=== PATIENT | female | born 2000 | race Caucasian/White ===

== ENCOUNTER 2019-04-23 10:17 | Emergency (ER) | payer OTHER ==
[2019-04-23 10:44] VITALS: BP 105/61
--- NOTE | 2019-04-23 10:52 | UC ---
Dental HPI - HPI Summary HPI Summary: right jaw pain x 4 days + injury 4 days ago , was hit to her right side for jaw during a rugby game pain is 6 out of 10 , worse with chewing, moving her jaw , talking, better with rest, Tylenol , + right ear pain no fever - History of Current Complaint Chief Complaint: UCGeneralIllness Stated Complaint: JAW PAIN/EAR PAIN Time Seen by Provider: 04/23/19 10:40 Hx Obtained From: Patient Hx Last Menstrual Period: 04/13/19 ?: No Onset/Duration: Gradual Onset, Lasting Days - 4, Still Present Severity: Moderate Pain Intensity: 6 Aggravating Factor(s): Chewing Alleviating Factor(s): Nothing - Allergies/Home Medications Allergies/Adverse Reactions: Allergies Allergy/AdvReac Type Severity Reaction Status Date / Time No Known Allergies Allergy Verified 04/23/19 10:39 Home Medications: Home Medications Dextroamphetamine/Amphetamine [Adderall Xr 20 mg Capsule] 20 mg PO DAILY [History Confirmed 04/23/19] Ibuprofen TAB* [Motrin TAB* 400 MG] 800 mg PO Q6H PRN 04/23/19 [History Confirmed 04/23/19] Naproxen [Naproxen 500 mg tab] 500 mg PO ONCE 04/23/19 [History Confirmed ] PMH/Surg Hx/FS Hx/Imm Hx Previously Healthy: Yes - Surgical History Surgical History: None - Family History Known Family History: Negative: Diabetes - Social History Alcohol Use: Occasionally Substance Use Type: None Smoking Status (MU): Never Smoked Tobacco Review of Systems All Other Systems Reviewed And Are Negative: Yes Constitutional: Positive: Negative Skin: Positive: Negative Eyes: Positive: Negative ENT: Positive: Ear Ache. Negative: Sore Throat, Nasal Discharge Respiratory: Positive: Negative Is Patient Immunocompromised?: No Physical Exam Triage Information Reviewed: Yes Appearance: Well-Appearing, No Pain Distress, Well-Nourished Vital Signs: Initial Vital Signs Temp 98.0 F 04/23/19 10:41 Pulse 85 04/23/19 10:41 Resp 14 04/23/19 10:41 BP 105/61 04/23/19 10:41 Pulse Ox 100 04/23/19 10:41 Vital Signs Reviewed: Yes Eye Exam: Normal Eyes: Positive: Conjunctiva Clear ENT: Positive: Normal ENT inspection, Hearing grossly normal, Pharynx normal Dental: Positive: Other: - tenderness right TMJ Neck exam: Normal Neck: Positive: Supple, Nontender, No Lymphadenopathy Respiratory Exam: Normal Respiratory: Positive: Chest non-tender, Lungs clear, Normal breath sounds Cardiovascular: Positive: RRR, No Murmur, Pulses Normal Abdominal Exam: Normal Skin Exam: Normal Dental Complaint Course/Dx - Differential Dx/Diagnosis Provider Diagnosis: TMJ arthropathy Discharge ED - Sign-Out/Discharge Documenting (check all that apply): Patient Departure All imaging exams completed and their final reports reviewed: No Studies - Discharge Plan Condition: Stable Disposition: HOME Patient Education Materials: Temporomandibular Disorder (ED) Referrals: No Primary Care Phys,NOPCP [Primary Care Provider] - If Needed Additional Instructions: acute TMJ, cont. with rest, ice, take Ibuprofen as needed for pain follow up as needed - Billing Disposition and Condition Condition: STABLE Disposition: Home
== END 2019-04-23 10:56 | disposition home or self-care (01) ==
LOC: UCCORT 10:17
DX: M12.88 Other specific arthropathies, not elsewhere classified, other specified site (principal)
CPT/HCPCS: 99201; G0463

== ENCOUNTER 2019-11-12 13:21 | Emergency (ER) | payer OTHER ==
[2019-11-12 13:49] VITALS: BP 109/63
--- NOTE | 2019-11-12 14:02 | UC ---
Ear Complaint HPI - HPI Summary HPI Summary: 19-year-old woman comes in with a chief complaint of right ear pain. In September she was running slipped on some ice and fell landing on her right side to include the right side of her head near. No loss of consciousness. She immediately had right ear pain. She was seen by the [facility] service and told that she had ruptured eardrum. The pain is continuing. It's worse when she lays down. She does feel and hear bubbling in the ear. Tylenol helps with the pain. No fevers or chills no runny nose no sore throat. Pain is only in the ear. - History of Current Complaint Chief Complaint: UCEar Stated Complaint: EAR COMPLAINT Time Seen by Provider: 11/12/19 13:51 Hx Last Menstrual Period: 04/13/19 Pain Intensity: 3 - Allergies/Home Medications Allergies/Adverse Reactions: Allergies Allergy/AdvReac Type Severity Reaction Status Date / Time No Known Allergies Allergy Verified 11/12/19 13:49 Home Medications: Home Medications Amoxicillin/Clavulanate TAB* [Augmentin TAB 875*] 875 mg PO BID #20 tab [Rx] FLUoxetine CAP* [PROzac CAP*] 10 mg PO DAILY 11/12/19 [History Confirmed ] PMH/Surg Hx/FS Hx/Imm Hx Previously Healthy: Yes - Surgical History Surgical History: None - Family History Known Family History: Negative: Diabetes - Social History Alcohol Use: Occasionally Substance Use Type: None Smoking Status (MU): Never Smoked Tobacco Review of Systems All Other Systems Reviewed And Are Negative: Yes Constitutional: Positive: Negative Skin: Positive: Negative Eyes: Positive: Negative ENT: Positive: Ear Ache Respiratory: Positive: Negative Cardiovascular: Positive: Negative Motor: Positive: Negative Neurovascular: Positive: Negative Musculoskeletal: Positive: Negative Neurological/Mental Status: Positive: Negative Psychological: Positive: Negative Is Patient Immunocompromised?: No Physical Exam Triage Information Reviewed: Yes Appearance: Well-Appearing, No Pain Distress, Well-Nourished Vital Signs: Initial Vital Signs Temp 98.0 F 11/12/19 13:43 Pulse 94 11/12/19 13:43 Resp 17 11/12/19 13:43 BP 109/63 11/12/19 13:43 Pulse Ox 97 11/12/19 13:43 Vital Signs Reviewed: Yes Eye Exam: Normal Eyes: Positive: Conjunctiva Clear ENT: Positive: Other - Left TMs normal. Right TM has a 2-3 mm dark area which appears to be dried blood. No dentist palpation of the tragus. No debris in the ear canal.. Negative: Nasal congestion Neck: Positive: Supple Respiratory: Positive: No respiratory distress Neurological: Positive: Alert, Muscle Tone Normal Psychological: Positive: Age Appropriate Behavior Skin Exam: Normal Ear Complaint Course/Dx - Course Course Of Treatment: On examination of the TM, it appears to have an area of dried blood covering and perforation. However there is a possibility of a foreign body. With no tenderness to palpation of the tragus or debris in the ear canal I will not treat with ear antibiotic drops at this time. We'll treat with Augmentin for potential ear infection. Patient is to follow-up with ENT. Should get reevaluated sooner if worse or any questions or concerns. - Differential Dx/Diagnosis Provider Diagnosis: Right ear pain Discharge ED - Sign-Out/Discharge Documenting (check all that apply): Patient Departure All imaging exams completed and their final reports reviewed: No Studies - Discharge Plan Condition: Stable Disposition: HOME Prescriptions: Amoxicillin/Clavulanate TAB* [Augmentin TAB 875*] 875 mg PO BID #20 tab Patient Education Materials: Ruptured Eardrum (ED), Earache (ED) Referrals: Warren Noriega MD [Medical Doctor] - Leonel Casas MD [Medical Doctor] - Kash Tesfaye MD [Medical Doctor] - Additional Instructions: FOLLOW UP WITH ENT. GET REEVALUATED SOONER IF NOT IMPROVING OR WORSE OR ANY QUESTIONS OR CONCERNS. - Billing Disposition and Condition Condition: STABLE Disposition: Home
== END 2019-11-12 14:06 | disposition home or self-care (01) ==
LOC: UCCORT 13:21
DX: H92.01 Otalgia, right ear (principal)
CPT/HCPCS: 99212; G0463